=== PATIENT | female | born 1955 | race Hispanic/Latino ===

== ENCOUNTER 2020-04-23 18:25 | Observation (INO) | payer OTHER ==
--- OUTSIDE RECORDS SUMMARY | 2020-04-23 18:28 | XMS REPORT | Continuity of Care Document ---
:1955 Author Organization [facility] t Address [address] [place] [address] Care Team Providers Name Role Phone Asked, Pcp Primary Care Physician Unavailable Viviana DEVLIN Attending Clinician Unavailable MYRTLE Attending Clinician Unavailable Orlando DEVLIN Attending Clinician Unavailable MYRTLE Admitting Clinician Unavailable Payers Payer Name Policy Type Policy Effective Date Expiration Date Sour ce Number [facility] [id number] 2018 [place] CHOICE 00:00:00 [facility] [employer]x [id number] esentExchange Problems Condition Condition Condition Status Onset Resolution Last Treating Co mments Source Name Details Category Date Date Treatment Clinician Date History of History of Disease [facility] coronary 8-11 Method i artery artery 00:00: st stent stent 00 placement placement SOB SOB Disease Active Overview: Ana n (shortness (shortness 1-10 Added Me thodi of breath) of breath) 00:00: automatic st 00 ally from request for surgery [id number] Coronary Coronary Disease Active Overview: Dionicio [place] artery artery 1-10 Added Methodi disease disease 00:00: automatic st involving involving 00 ally from [place] request coronary coronary for artery of artery of surgery [place] [id number] heart heart without without angina angina pectoris pectoris Abnormal Abnormal Disease Active Overview: Dionicio [place] stress stress 1-10 Added Methodi test test 00:00: automatic st 00 ally from request for surgery [id number] Angina Angina Disease Active 2015-02 Allen pectoris pectoris 0-25 Method i 00:00: st 00 Coronary Coronary Disease Active 2015-02 [place] arterioscl arterioscl 0-25 Me thodi erosis erosis 00:00: st 00 Essential Essential Disease Active 2015-02 Jocy calero hypertensi hypertensi 0-25 Me thodi on on 00:00: st 00 Hyperlipid Hyperlipid Disease Active 2015-02 H cindy emia emia 0-25 Methodi 00:00: st 00 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 Family History Family Member Diagnosis Comments Start Date Stop Date Source Other Coronary artery disease H cindy Jadeist Social History Social Habit Start Date Stop Date Quantity Comments Source Sex Assigned At [facility] ethodist Tobacco use and 2019-04-06 2019-04-06 Never used [facility] ethodist exposure 00:00:00 00:00:00 Alcohol intake 2019-04-06 2019-04-06 Current [facility] thodist 00:00:00 00:00:00 non-drinker of alcohol (finding) Smoking Status Start Date Stop Date Source [facility] Ordered Filled Start Stop Current Ordering Indication Dosage Frequency Signature Comments Components Source Medication Medication Date Date Medication? Clinician (SIG) Name Name furosemide 2019-02 Yes 40mg QD Take 1 [place] (LASIX) 40 2-11 tablet (40 Met hodi mg tablet 00:00: mg total) st 00 by mouth daily. furosemide 2019- No 40mg QD Take 1 [place] (LASIX) 40 8-20 12-11 tablet (40 Me thodi mg tablet 00:00: 00:00 mg total) st 00 :00 by mouth daily. furosemide 2020- No 40mg QD Take 2 [place] (LASIX) 20 8-11 08-20 tablets Metho di mg tablet 00:00: 00:00 ([address] 00 :00 total) by mouth daily. furosemide 2020- No 20mg QD Take 20 mg Allen (LASIX) 20 3-23 03-23 by mouth Meth mark mg tablet 11:00: 00:[address] 17 :00 furosemide 2020- No 20mg QD Take 1 [place] (LASIX) 20 3-23 08-11 tablet (20 Me thodi mg tablet 00:00: 00:00 mg total) st 00 :00 by mouth daily. spironolact Yes 50mg QD Take 50 mg Allen one 2-11 by mouth Methodi (ALDACTONE) 14:48: daily. st 50 MG 37 tablet cholecalcif Yes 1000U [id number] Take 1,000 Allen kemar, 04-06 [id number] Units by Meth mark vitamin D3, 14:48: 3D mouth 3 st (VITAMIN 37 (three) D3) 25 mcg times a (1,000 day. unit) capsule multivitami Yes 1{tbl} QD Take 1 [place] with 2-11 tablet by Methodi minerals 14:48: mouth st tablet 37 daily. amLODIPine 2020- No 5mg QD Take 1 [place] (NORVASC) 5 03-17 tablet (5 Me thodi mg tablet 00:00: 23:59 mg total) st 00 :00 by mouth daily. atorvastati 2020- No 80mg QD Take 1 Jocy brownn n (LIPITOR) 03-17 tablet (80 M ethodi 80 MG 00:00: 23:59 mg total) st tablet 00 :00 by mouth daily. aspirin 2020- No 81mg QD Take 1 Allen (ECOTRIN) 03-17 tablet (81 Met hodi 81 MG 00:00: 23:59 mg total) st enteric 00 :00 by mouth coated daily for tablet 360 days. ticagrelor 2020- No 90mg Q.5D Take 1 [place] (BRILINTA) 03-17 tablet (90 Me thodi 90 mg 00:00: 23:59 mg total) st tablet 00 :00 by mouth 2 (two) times a day for 360 days. fenofibrate 2015-02 Yes 67mg QD Take 67 mg Allen micronized 0-21 by mouth Metho di (LOFIBRA) 00:00: daily st 67 MG 00 before capsule breakfast. lisinopril 2015-02 Yes 10mg QD Take 10 mg H ouabdias (PRINIVIL,Z 0-21 by mouth Meth mark ESTRIL) 10 00:00: daily. st mg tablet 00 metoprolol 2015-02 Yes 50mg QD Take 50 mg [place] succinate 0-21 by mouth Method i XL 00:00: daily. st (TOPROL-XL) 00 50 mg 24 hr tablet Vital Signs Vital Name Observation Time Observation Value Comments Source Systolic blood 2019-10-27 13:36:00 120 mm[Hg] Abdoulayeto n [facility] pressure Diastolic blood 2019-10-27 13:36:00 72 mm[Hg] F[place] on [facility] pressure Heart rate 2019-10-27 13:36:00 87 /min Alejandro Whitney Body height 2019-10-05 13:27:00 165.1 cm Alejandro Whitney Body weight 2019-10-05 13:27:00 105.235 kg Alejandro Whitney BMI 2019-10-05 13:27:00 38.61 kg/m2 Alejandro Whitney Procedures Procedure Date / Time Performed Performing Clinician Sourc e TTE COMPLETE, WO 2019-10-27 14:01:45 Meche Iraheta Met hodist CONTRAST, W DOPPLER ([id number]) NM MYOCARDIAL PERFUSION 2019-10-26 10:35:00 Meche Iraheta ton [facility] CV STRESS TEST 2019-10-26 10:16:20 Meche Iraheta Meth odist Plan of Care Planned Activity Planned Date Details Comments Source Future Scheduled 2020-01-13 65+ PNEUMOCOCCAL [place] [facility] Test 00:00:00 VACCINE (1 of 1 - PPSV23) [code = 65+ PNEUMOCOCCAL VACCINE (1 of 1 - PPSV23)] Future Scheduled 2019-09-25 INFLUENZA VACCINE Abdoulayeto n [facility] Test 00:00:00 [code = INFLUENZA VACCINE] Future Scheduled 2005 BREAST CANCER [facility] thodist Test 00:00:00 SCREENING [code = BREAST CANCER SCREENING] Future Scheduled 2005 COLONOSCOPY SCREENING [place] [facility] Test 00:00:00 [code = COLONOSCOPY SCREENING] Future Scheduled 2005 SHINGLES VACCINES (#1) [place] [facility] Test 00:00:00 [code = SHINGLES VACCINES (#1)] Future Scheduled 1976-01-13 Screening for [facility] thodist Test 00:00:00 malignant neoplasm of cervix (procedure) [code = 395184471] Future Scheduled 1973 Hepatitis C screening [place] [facility] Test 00:00:00 (procedure) [code = 600804384] Future Scheduled 1971 COVID-19 VACCINE (1 of [place] [facility] Test 00:00:00 2) [code = COVID-19 VACCINE (1 of 2)] Encounters Start End Encounter Admission Attending Care Care Encounter Source Date/Time Date/Time Type Type Clinicians Facility Department ID 2019-10-27 2019-10-29 Outpatient [facility] [id number] [place] 00:00:00 00:00:00 MECHE [address] 2019-10-26 2019-10-26 Outpatient [facility] [id number] [place] 00:00:00 00:00:00 MECHE [address] 2019-10-05 2019-10-05 Outpatient [facility] [id number] [place] 00:00:00 00:00:00 MECHE [address] 2019-03-17 2019-03-17 Outpatient [facility] [id number] [place] 00:00:00 00:00:00 MECHE [address] Results This patient has no known results.
[2020-04-23 20:29] LABS: Absolute Lymphocytes (CBC) 1.6 K/uL (0.7-4.9); Basophils % 0.6 % (0-1.3); Hematocrit 36.9 % (36.0-45.0); Lymphocytes % 28.2 % (15.3-44.8); MPV 9.3 fL (7.6-11.3); RBC Red Blood Cell Count 4.11 M/uL (3.86-4.86)
[2020-04-23 20:30] LABS: Protime INR 0.96
[2020-04-23 20:52] LABS: ALT/SGPT 26 U/L (12-78); AST/SGOT 15 U/L (15-37); Alkaline Phosphatase 95 U/L (45-117); BUN Blood Urea Nitrogen 35 mg/dL (7-18); Bicarbonate 25 mmol/L (21-32); Bilirubin Direct 0.1 mg/dL (0-0.2); Bilirubin Total 0.4 mg/dL (0.2-1.0); Glucose Level 115 mg/dL (74-106); Magnesium 2.3 mg/dL (1.8-2.4); NT PRO-BNP 189 pg/mL (<125); Potassium 3.9 mmol/L (3.5-5.1); Protein, Total 7.2 g/dL (6.4-8.2); Sodium Level 141 mmol/L (136-145); Troponin (Emerg Dept Use Only) < 0.02 ng/mL (0.0-0.045)
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
[2020-04-23] MEDS ORDERED: ASPIRIN 81 MG CHEWABLE TABLET ONE (23:34)
[2020-04-23] MEDS ORDERED: ENOXAPARIN 100 MG/ML SYR SQ ONE (23:34)
[2020-04-23] MEDS ORDERED: ONDANSETRON 4 MG/2 ML VIAL IV PRN (23:36)
[2020-04-23] MEDS ORDERED: ACETAMINOPHEN 500 MG TAB PO PRN (23:36)
[2020-04-23] MEDS ORDERED: MORPHINE 4 MG/ML SYR IV PRN (23:36)
[2020-04-24 00:27] VITALS: BMI 40.5
[2020-04-24 05:56] LABS: Absolute Lymphocytes (CBC) 2.1 K/uL (0.7-4.9); Basophils % 0.8 % (0-1.3); Hematocrit 36.8 % (36.0-45.0); Lymphocytes % 40.5 % (15.3-44.8); MPV 9.2 fL (7.6-11.3); RBC Red Blood Cell Count 4.07 M/uL (3.86-4.86)
[2020-04-24 06:09] LABS: Potassium 3.8 mmol/L (3.5-5.1)
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
[2020-04-24] MEDS ORDERED: ASPIRIN EC 81 MG TAB PO SCH (09:00)
[2020-04-24 09:06] VITALS: BP 108/71; TEMP 97.3
[2020-04-24 12:25] VITALS: O2SAT 95
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
--- NOTE | 2020-04-24 17:08 | EKG ---
Test Date: 2020-04-24 Test Time: 09:43:10 Digital Media Designer: VAZQUEZ MEASUREMENT RESULTS: Intervals: Rate: 78 KS: 192 QRSD: 86 QT: 376 QTc: 428 [place]: P: 2 KS: 192 QRS: -2 T: 16 INTERPRETIVE STATEMENTS: Normal sinus rhythm Normal ECG Compared to ECG 04/23/2020 20:09:12 Accelerated junctional rhythm no longer present Electronically Signed On 04-24-20 17:05:59 LAN SPECIALIST by Grady Harmon
--- NOTE | 2020-04-24 17:10 | EKG ---
Test Date: 2020-04-23 Test Time: 20:09:12 Wood Gluer: DANAE MEASUREMENT RESULTS: Intervals: Rate: 86 ME: QRSD: 108 QT: 366 QTc: 437 [place]: P: ME: QRS: 18 T: 23 INTERPRETIVE STATEMENTS: Accelerated Junctional rhythm Abnormal ECG Compared to ECG 02/18/2014 16:45:05 Accelerated junctional rhythm now present Sinus rhythm no longer present Left ventricular hypertrophy no longer present Electronically Signed On 04-24-20 17:06:18 PARACHUTE TAPER by Grady Harmon
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
== END 2020-04-24 15:33 | disposition home or self-care (01) ==
LOC: ER 18:25 → ERHOLD 23:34 → 2ND 04-24 00:03
PROVIDERS: ADMIT Internal Medicine; ATTEND Internal Medicine
DX: R07.89 Other chest pain (principal); M25.551 Pain in right hip; V49.49XA Driver injured in collision with other motor vehicles in traffic accident, initial encounter; I25.119 Atherosclerotic heart disease of native coronary artery with unspecified angina pectoris; E11.9 Type 2 diabetes mellitus without complications; I10 Essential (primary) hypertension; K21.9 Gastro-esophageal reflux disease without esophagitis; E78.5 Hyperlipidemia, unspecified; Z95.5 Presence of coronary angioplasty implant and graft; Z82.49 Family history of ischemic heart disease and other diseases of the circulatory system; Z83.3 Family history of diabetes mellitus; Z80.9 Family history of malignant neoplasm, unspecified
CPT/HCPCS: 93005 ×2; 85025 ×2; 80048 ×2; 36415; 83735; 85610; 82947 ×2; 80076; 84484 ×3; 83880; 71045; 73502; 96372; 99285; U0003; J1650; G0378